=== PATIENT | male | born 1955 | race Caucasian/White ===

== ENCOUNTER 2016-12-29 16:37 | Emergency (ER) | payer BC, MEDICAID ==
[~2016-12-29] VITALS: Ht 170.2 cm; Wt 115.9 kg
[2016-12-29] MEDS ORDERED: AMLO5TAB2 PO (16:48)
[2016-12-29] MEDS ORDERED: LOSA50TA20 PO (16:48)
[2016-12-29] MEDS ORDERED: OMEP40CA2 PO (16:48)
[2016-12-29] MEDS ORDERED: METO37.5 PO (16:48)
[2016-12-29] MEDS ORDERED: LIPI80TA PO (16:48)
[2016-12-29] MEDS ORDERED: METF500T13 PO (16:48)
[2016-12-29] MEDS ORDERED: ASPIRIN 81 MG CHEW TABLET PO ONE (18:00)
[2016-12-29] MEDS ORDERED: NITROGLYCERIN 0.4 MG SUBL TABLET SL PRN (18:00)
[2016-12-29 18:06] LABS: BASO # 0.1 K/mm3 (0.0-0.2); BASO % 0.9 % (0.0-1.0); EOS # 0.3 K/mm3 (0.0-0.50); EOS % 3.3 % (0.0-3.0); LARGE UNSTAINED CELL # 0.2 K/mm3 (0.0-0.4); LARGE UNSTAINED CELL % 2.9 % (0.0-4.0); LYMPH # 2.6 K/mm3 (1.5-4.5); LYMPH % 30.9 % (24.0-44.0); MEAN CORPUSCULAR HEMOGLOBIN 30.9 pg (27.0-33.0); MEAN CORPUSCULAR HGB CONC 35.2 g/dl (32.0-36.5); MEAN CORPUSCULAR VOLUME 87.9 fl (80.0-96.0); MONO # 0.4 K/mm3 (0.0-0.8); MONO % 4.9 % (0.0-5.0); NEUTROPHILS # 4.5 K/mm3 (1.8-7.7); NEUTROPHILS % 57.1 % (36.0-66.0); PLATELET COUNT, AUTOMATED 188 k/mm3 (150-450); RED CELL DISTRIBUTION WIDTH 12.1 % (11.5-14.5); WHITE BLOOD COUNT 7.8 K/mm3 (4.0-10.0)
[2016-12-29 18:07] LABS: INR 0.95
--- NOTE | 2016-12-29 18:30 | REPUSA ---
Clinical history: Pain, swelling. Findings: The common femoral, superficial femoral, popliteal, and other deep venous structures compre ss normally and demonstrate normal color Doppler flow. Normal venous waveforms with augmentation are seen. Impression: No evidence of deep vein thrombosis in the femoral popliteal venous system.
[2016-12-29 18:35] LABS: ANION GAP 10 MEQ/L (8-16); BLOOD UREA NITROGEN 15 MG/DL (7-18); CALCIUM LEVEL 8.9 MG/DL (8.8-10.2); CARBON DIOXIDE LEVEL 25 MEQ/L (21-32); CHLORIDE LEVEL 107 MEQ/L (98-107); CREATININE FOR GFR 0.93 MG/DL (0.70-1.30); GLOMERULAR FILTRATION RATE > 60.0 (>49); GLUCOSE, FASTING 122 MG/DL (80-110); POTASSIUM SERUM 3.9 MEQ/L (3.5-5.1); SODIUM LEVEL 142 MEQ/L (136-145)
--- NOTE | 2016-12-29 19:18 | REP ---
CHEST X-RAY, PA AND LATERAL: 12/29/2016. Comparison: 10/14/2005, chest x-ray. Clinical history: Chest pain. Findings: Lung barroso are well inflated. CP angles sharply defined. There is no effusion, lateral pleural thickening, apical scarring or pneumothorax. No consolidation, atelectasis or mass. The heart is borderline in size. There is pulmonary artery hypertension but no pulmonary venous hypertension or edema. Mildly tortuous aorta without aneurysm. There is an anterior plate and screw fixation from C5-C7 cervical discectomy and fusion. No compression deformity in the spine with marginal osteophytes mid and lower thoracic region. Impression: 1. Borderline heart size without vascular redistribution or pulmonary edema. 2. Some mild pulmonary artery hypertension, unchanged. 3. No effusion, infiltrate or other significant finding. Signed by Mick Reza MD 12/30/2016 04:50 P
[2016-12-29] MEDS ORDERED: ISOVUE-370 76% 100ML VIAL (Q9967) As Ordered ONE (19:20)
--- NOTE | 2016-12-29 19:47 | REP ---
Clinical: Shortness of breath. Technique: Axial contrast enhanced images from the thoracic inlet to the upper abdomen using 100 ml Isovue 370 intravenous contrast material with multiplanar re-formations. Comparison: None. Findings: Satisfactory enhancement of the pulmonary vasculature is achieved and no filling defects are identified to suggest pulmonary embolus. Thoracic aorta is normal in appearance and without aneurysm or dissection. Mild cardiomegaly is suggested along with minimal atherosclerotic changes to the thoracic aorta and coronary arteries. The lung barroso demonstrate mild basilar dependent changes and trace atelectasis without focal consolidation, effusion or pneumothorax. Moderately prominent hilar lymph nodes are identified bilaterally measuring up to approximately 15 mm which are otherwise nonspecific. Tracheobronchial tree is patent. Surrounding musculoskeletal structures demonstrate age-related degenerative changes without focal osseous abnormality. Limited evaluation of the upper abdomen is unremarkable. Impression: 1. No evidence for pulmonary embolus. 2. Mild cardiomegaly along with minimal atherosclerotic changes to the thoracic aorta and coronary arteries. 3. Mild dependent changes/atelectasis. Signed by Felix Sal MD 12/29/2016 07:38 P
[2016-12-29 23:36] VITALS: BP 155/79
--- NOTE | 2016-12-31 09:03 | ECGEPIP ---
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
--- NOTE | 2016-12-31 09:05 | ECGEPIP ---
Stationary ECG Study 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
== END 2016-12-30 00:05 | disposition home or self-care (01) ==
LOC: M ED 16:37
DX: R07.9 Chest pain, unspecified (principal); R06.02 Shortness of breath; E11.9 Type 2 diabetes mellitus without complications; I10 Essential (primary) hypertension; I25.9 Chronic ischemic heart disease, unspecified; K21.9 Gastro-esophageal reflux disease without esophagitis; E78.5 Hyperlipidemia, unspecified; Z95.5 Presence of coronary angioplasty implant and graft; Z82.49 Family history of ischemic heart disease and other diseases of the circulatory system; Z79.899 Other long term (current) drug therapy; Z79.84 Long term (current) use of oral hypoglycemic drugs; Z87.891 Personal history of nicotine dependence
CPT/HCPCS: 36415; 71020; 71275; 80048; 82550; 82553; 85025; 85610; 85730; 93005; 93041; 93970; 94760; 99285; Q9967

== ENCOUNTER → 2019-03-10 | Outpatient (CLI) | payer MEDICARE, MEDICAID ==
[~2019-03-10] MED LIST: AMLO5TAB6 PO; LIPI80TA PO; LOSA50TA88 PO; METF500T13 PO; METO37.5 PO; OMEP40CA97 PO
[2019-03-10 13:24] LABS: BLOOD UREA NITROGEN 15 MG/DL (7-18); CALCIUM LEVEL 8.6 MG/DL (8.8-10.2); CARBON DIOXIDE LEVEL 30 MEQ/L (21-32); CHLORIDE LEVEL 104 MEQ/L (98-107); GLOMERULAR FILTRATION RATE > 60.0 (>49); GLUCOSE, FASTING 198 MG/DL (70-100); POTASSIUM SERUM 4.4 MEQ/L (3.5-5.1); SODIUM LEVEL 139 MEQ/L (136-145)
[2019-03-10 14:15] LABS: AMORPHOUS SEDIMENT LARGE (NEGATIVE); APPEARANCE, URINE TURBID (CLEAR); BACTERIA, URINE AUTO NEGATIVE (NEGATIVE); BILIRUBIN, URINE AUTO NEGATIVE (NEGATIVE); BLOOD, URINE BLOOD NEGATIVE (NEGATIVE); COLOR, URINE YELLOW (YELLOW); GLUCOSE, URINE (UA) AUTO 2+ mg/dL (NEGATIVE); KETONE, URINE AUTO TRACE mg/dL (NEGATIVE); LEUKOCYTE ESTERASE, URINE AUTO NEGATIVE (NEGATIVE); NITRITE, URINE AUTO NEGATIVE (NEGATIVE); PROTEIN, URINE AUTO NEGATIVE (NEGATIVE); RBC, URINE AUTO 0 /HPF (0-3); SPECIFIC GRAVITY URINE AUTO 1.031 (1.002-1.035); SQUAMOUS EPITHELIAL CELL UR AU 0 /HPF (0-6); UROBILINOGEN, URINE AUTO 0.2 mg/dL (0.0-2.0); WBC, URINE AUTO 0 /HPF (0-3)
== END ==
LOC: M SMT 10:53
PROVIDERS: ATTEND Nurse Practitioner Women's Health
DX: Z12.5 Encounter for screening for malignant neoplasm of prostate (principal); R31.0 Gross hematuria
CPT/HCPCS: 36415; 80048; 81001; 87086; 88108; G0103; G0463

== ENCOUNTER → 2020-06-19 | Outpatient (REF) | payer MEDICARE, MEDICAID ==
[~2020-06-19] MED LIST changes: +AMLO1TAB24 PO; -AMLO5TAB6 PO
[2020-06-19 13:06] LABS: AMORPHOUS SEDIMENT MODERATE (NEGATIVE); APPEARANCE, URINE TURBID (CLEAR); BACTERIA, URINE AUTO NEGATIVE (NEGATIVE); BILIRUBIN, URINE AUTO NEGATIVE (NEGATIVE); BLOOD, URINE BLOOD NEGATIVE (NEGATIVE); GLUCOSE, URINE (UA) AUTO 1+ mg/dL (NEGATIVE); KETONE, URINE AUTO NEGATIVE (NEGATIVE); LEUKOCYTE ESTERASE, URINE AUTO NEGATIVE (NEGATIVE); MUCUS, URINE SMALL (NEGATIVE); NITRITE, URINE AUTO NEGATIVE (NEGATIVE); PROTEIN, URINE AUTO 1+ mg/dL (NEGATIVE); RBC, URINE AUTO 0 /HPF (0-3); SPECIFIC GRAVITY URINE AUTO 1.029 (1.002-1.035); SQUAMOUS EPITHELIAL CELL UR AU 0 /HPF (0-6); UROBILINOGEN, URINE AUTO 0.2 mg/dL (0.0-2.0); WBC, URINE AUTO 0 /HPF (0-3)
[2020-06-19 13:07] LABS: COLOR, URINE YELLOW (YELLOW)
== END ==
LOC: M SMT 12:45
PROVIDERS: ATTEND Nurse Practitioner Women's Health
DX: N40.0 Benign prostatic hyperplasia without lower urinary tract symptoms (principal)
CPT/HCPCS: 81001; 87086; G0463

== ENCOUNTER 2022-11-06 19:53 | Emergency (ER) | payer MEDICARE, MEDICAID ==
[~2022-11-06] VITALS: Ht 170.2 cm; Wt 101.0 kg
[~2022-11-06 19:53] MED LIST changes: +LOSA50TA28 PO; -LOSA50TA88 PO; +OMEP40CA4 PO; -OMEP40CA97 PO
[2022-11-06 19:54] VITALS: BP 119/60; TEMP 96.5; O2SAT 98
== END 2022-11-06 22:01 | disposition left against medical advice (07) ==
LOC: M ED 19:53
DX: Z53.21 Procedure and treatment not carried out due to patient leaving prior to being seen by health care provider (principal)